=== PATIENT | female | born 1960 | race Caucasian/White ===

== ENCOUNTER → 2019-10-23 | Outpatient (CLI) | payer BC, OTHER ==
[~2019-10-23] VITALS: Ht 160 cm; Wt 82.1 kg
[~2019-10-23] MED LIST: ALEVE220 M1 PO; AMPHETAMINE SAL30 MG PO; CHLORZOXAZONE500 MG PO; CLINDAMYCIN HC300 MG PO; DULOXETINE HCL60 MG PO; GABAPENTIN600 M1 PO; INDERAL LA120 MG PO; METFORMIN HCL500 M3 PO; NORCO 10-325 T1 EACH PO; PAIN RELIEF500 M1 PO; ROSUVASTATIN CA10 MG PO; TRELEGY ELLIPT1 EACH INH
== END ==
LOC: LAB 08:00 → OR 13:04 → EDSTATUS 10-26 12:01 → OR 10-26 13:24
PROVIDERS: ATTEND Student in an Organized Health Care Education/Training Program
DX: Z01.818 Encounter for other preprocedural examination (principal); Z11.59 Encounter for screening for other viral diseases